=== PATIENT | female | born 1990 | race Caucasian/White ===

== ENCOUNTER 2016-05-01 17:30 | Emergency (ER) | payer BC ==
[~2016-05-01] VITALS: Ht 170.2 cm; Wt 70.2 kg
[~2016-05-01 17:30] MED LIST: MULT-506 PO
[2016-05-01 18:13] VITALS: TEMP 36.9; Ht 170.2 cm; Wt 70.2 kg
--- NOTE | 2016-05-01 19:14 | DIAGNOSTIC IMAGING REPORT ---
RIGHT SECOND FINGER 3 VIEWS HISTORY: Right second finger injury with pain. COMPARISON: None. FINDINGS: There is no fracture or dislocation. Distal soft tissue swelling. No radiopaque foreign bodies. IMPRESSION: No fractures within the right index finger. Electronically signed by: Rhett Samson M.D. 05/01/2016 7:13 PM Dictated Date/Time: 05/01/2016 7:12 PM
[2016-05-01] MEDS ORDERED: MONT1TAB3 PO (19:19)
[2016-05-01] MEDS ORDERED: BCPILLS PO (19:19)
[2016-05-01] MEDS ORDERED: CLR10 PO (19:19)
--- NOTE | 2016-05-01 19:20 | EMERGENCY ROOM VISIT NOTE ---
ED Visit Note First contact with patient: 19:09 CHIEF COMPLAINT: Finger infection HISTORY OF PRESENT ILLNESS: This 25-year-old female patient presents to the emergency department ambulatory complaining of pain and swelling of the right second finger. She states that her finger got closed in a drawer approximately 2 weeks ago. She was doing well but began to become swollen and painful over the last several days. She does wear fake nails and states the nail broke. . The patient has not had a fever. There has been no discharge. The patient has tried nothing. The patient's tetanus shot is up-to-date. REVIEW OF SYSTEMS: A 6 system review of systems was completed with positives and pertinent negatives listed in the HPI. ALLERGIES: Penicillin, sulfa; the patient believes she can take Keflex MEDICATIONS: Patient denies PMH: Patient denies. SOCIAL HISTORY: Patient lives locally. She is a student. PHYSICAL EXAM: Vital Signs: Reviewed Nurse's notes, temperature 36.9C orally, vital signs stable. GENERAL: The 25-year-old female, in no acute distress, nontoxic in appearance, well-developed, well-nourished. SKIN: There is erythema , swelling, and tenderness of the nail fold around the right second finger. There is mild fluctuance but no drainage. There is no pus under the nail. There is no lymphangitic streaking up the hand. Capillary refill less than two seconds. MUSCULOSKELETAL: The patient has full range of motion and strength of the hand and fingers. Peripheral pulses 2+. ED COURSE: I examined the patient. The area of fluctuance of the finger with cleaned with Betadine. Ethyl chloride was used to anesthetize the area. An 11 blade was then used to make a 0.5 cm incision to drain the paronychia. A small amount of pus was expressed and a culture was obtained. More was expressed with pressure until all of the pus was relieved. The area was thoroughly cleaned with sterile saline. The area was then dressed with bacitracin and a bandage. The patient tolerated the procedure well. The patient was discharged home in stable condition. She will be placed on Keflex. DIAGNOSIS: Paronychia of the right second finger DISCHARGE INSTRUCTIONS: Soak the finger in hot water 4 times a day for 20 minutes each, take Keflex 500 mg 4 times a day for 7 days. Return if the area seems to be getting worse. Current/Historical Medications Scheduled Control Pills ( Control Pills), 1 TAB PO DAILY Cephalexin Monohydrate (Keflex), 500 MG PO QID Loratadine (Claritin), 10 MG PO DAILY Montelukast Sodium (Singulair), 1 TAB PO DAILY Multivitamin (Multivitamin), 1 TAB PO DAILY Scheduled PRN Albuterol Sulfate (Proair Respiclick), 2-4 PUFFS INH Q4H PRN for SOB/Wheezing Allergies Coded Allergies: Penicillins (Unverified Allergy, Unknown, HIVES, 05/01/16) Sulfa Drugs (Unverified Allergy, Unknown, HIVES, 05/01/16) Vital Signs Date Time Temp Pulse Resp B/P Pulse Ox O2 Delivery O2 Flow Rate FiO2 05/01/16 19:48 98 16 141/89 99 05/01/16 18:13 36.9 115 16 148/104 98 Room Air Medications Administered Medications (Trade) Dose Ordered Sig/Lindy Route Start Time Stop Time Status Last Admin Dose Admin Cephalexin Monohydrate (Keflex 500MG Home Pack) 1 homepack NOW ONCE PO 05/01/16 19:45 05/01/16 19:46 DC 05/01/16 19:47 1 HOMEPACK Departure Information Impression Primary Impression: Paronychia Dispostion Home / Self-Care Condition GOOD Prescriptions Cephalexin Monohydrate (Keflex) 500 Mg Cap 500 MG PO QID for 7 Days, #28 CAP Prov: Debora Rojas PA-C 05/01/16 Referrals No Doctor, Assigned (PCP) Patient Instructions ED Infec Fingernail, [facility] Additional Instructions Soak the finger in hot water 4 times a day for 20 minutes each, take Keflex 500 mg 4 times a day for 7 days. Return if the area seems to be getting worse. Problem Qualifiers Primary Impression: Paronychia Laterality: right Qualified Codes: L03.011 - Cellulitis of right finger
[2016-05-01] MEDS ORDERED: ALBU18002 INH (19:22)
[2016-05-01] MEDS ORDERED: CEPH500C PO (19:34)
[2016-05-01] MEDS ORDERED: CEPHALEXIN 500MG HOME PACK 1 EA BTL PO ONE (19:45)
[2016-05-01 19:48] VITALS: BP 141/89; PULSE 98; O2SAT 99
--- NOTE | 2016-05-03 18:38 | Pharmacy Progress Note ---
ED Pharmacist Culture FollowUp Date of Service: May 03, 2016. Patient sent home with a prescription for cephalexin. Klebsiella oxytoca and gamma Strep not Enterococcus growing from skin/finger culture. Klebsiella is intermediately susceptible to cefazolin (which has similar sensitivity to cephalexin). Called patient regarding skin/finger culture. Patient reported significant improvement in both pain and swelling. Counseled to continue cephalexin as she is doing well, but to call back if symptoms get worse or do not completely resolve by the end of the course of antibiotic. Provided ER phone number. Case discussed with Dr. Soto.
== END 2016-05-01 19:49 | disposition home or self-care (01) ==
LOC: C.EDB 17:33 → C.EDD 19:49
DX: L03.011 Cellulitis of right finger (principal)